=== PATIENT | female | born 1960 | race Caucasian/White ===

== ENCOUNTER 2018-05-29 02:52 | Emergency (ER) | payer SELFPAY ==
[2018-05-29] MEDS ORDERED: amLODIPine BESYLATE 10 MG TABLET (FP) PO ONE (03:59)
[2018-05-29] MEDS ORDERED: amLODIPine BESYLATE 5 MG TABLET (FP) ONE (04:09)
[2018-05-29 04:47] VITALS: TEMP 97.8; BMI 28.4
--- NOTE | 2018-05-29 05:10 | PDOC ---
History of Present Illness - General Chief Complaint: Blood Pressure Problem Stated Complaint: ELEVATED BLOOD PRESSURE Time Seen by Provider: 05/29/18 03:47 History Source: Patient Exam Limitations: No Limitations Past History - Past Medical History Allergies/Adverse Reactions: Allergies Allergy/AdvReac Type Severity Reaction Status Date / Time No Known Allergies Allergy Verified 05/29/18 03:17 Home Medications: Ambulatory Orders Amlodipine Besylate [Norvasc -] 10 mg PO DAILY #30 tablet 05/29/18 - Suicide/Smoking/Psychosocial Hx Smoking History: Never smoked Have you smoked in the past 12 months: No Information on smoking cessation initiated: No Hx Alcohol Use: No Drug/Substance Use Hx: No *Physical Exam - Vital Signs Last Vital Signs Temp Pulse Resp BP Pulse Ox 97.8 F 65 18 179/89 H 98 05/29/18 03:17 05/29/18 03:17 05/29/18 03:17 05/29/18 03:17 05/29/18 03:17 - Physical Exam General Appearance: No: Apparent Distress HEENT: positive: RICH Respiratory/Chest: positive: Lungs Clear, Normal Breath Sounds. negative: Respiratory Distress Cardiovascular: positive: Regular Rhythm, Regular Rate, S1, S2. negative: Murmur Gastrointestinal/Abdominal: positive: Normal Bowel Sounds, Soft. negative: Tender, Distended, Guarding, Rebound Neurologic: positive: revising clerk II-XII NML intact, Fully Oriented, Alert, Normal Mood/ Affect, Normal Response, Motor Strength 5/5 Moderate Sedation - Procedure Monitoring Vital Signs: Procedure Monitoring Vital Signs Temperature 97.8 F 05/29/18 03:17 Pulse Rate 65 05/29/18 03:17 Respiratory Rate 18 05/29/18 03:17 Blood Pressure 179/89 H 05/29/18 03:17 O2 Sat by Pulse Oximetry (%) 98 05/29/18 03:17 ED Treatment Course - Medications Given in the ED: ED Medications Discontinued Medications Generic Name Dose Route Start Last Admin Trade Name Freq PRN Reason Stop Dose Admin Amlodipine Besylate 10 mg 05/29/18 03:59 05/29/18 04:11 Norvasc - PO 05/29/18 04:00 10 mg ONCE ONE Administration Medical Decision Making - Medical Decision Making 58 y/o F hx of HTN and seizures presents with elevated BP of 200/104 at home today. Patient takes Norvasc 10 mg daily for HTN but has been out of her meds x 2 weeks. Patient recently got new PCP, who she saw 3 weeks, but states her PCP did not refill her BP meds. Denies fever, sob, cp, abd pain, n/v, headache, numbness/tingling/weakness of extremities, visual changes HTN - repeat BP here was 169/92 Patient was given her Norvasc and repeat BP was 138/71 Patient asymptomatic with no focal deficits Will refill her BP meds Stable for discharge 05/29/18 05:05 *DC/Admit/Observation/Transfer Diagnosis at time of Disposition: Hypertension Qualifiers: Hypertension type: essential hypertension Qualified Code(s): I10 - Essential ( primary) hypertension - Discharge Dispostion Disposition: HOME Condition at time of disposition: Stable Decision to Admit order: No - Prescriptions Prescriptions: Amlodipine Besylate [Norvasc -] 10 mg PO DAILY #30 tablet - Referrals - Patient Instructions Printed Discharge Instructions: DI for High Blood Pressure Additional Instructions: Thank you for choosing [facility]. It was a pleasure taking care of you. Your blood pressure medication prescription was refilled Follow-up with your PCP in 2-3 days. Return to the Emergency Department if your symptoms worsen or persist, you have fever, shortness of breath, chest pain, severe abdominal pain, vomiting, dizziness, weakness of extremities (arms and/or legs), changes in vision or walking or other concerning symptoms. - Post Discharge Activity
[2018-05-29 05:23] VITALS: BP 147/83; PULSE 62
== END 2018-05-29 05:23 | disposition home or self-care (01) ==
LOC: JER 02:52
DX: I10 Essential (primary) hypertension (principal); R56.9 Unspecified convulsions
CPT/HCPCS: 99282-25